=== PATIENT | female | born 1945 | race African-American/Black ===

== ENCOUNTER 2017-01-29 15:17 | Emergency (ER) | payer MEDICARE, OTHER ==
[~2017-01-29] VITALS: Ht 165.1 cm; Wt 46.8 kg
[~2017-01-29 15:17] MED LIST: ARTIDRO EACH EYE; BACL10TA PO; CARB25TA9 PO; CLON0.1T PO; FLUT1INH INH; IBUP1TAB5 PO; MIRA3350 PO; MONT10TA2 PO; ONDA4TAB7 SL; SERT-132 PO; TRAZ50TA12 PO; UMEC1INH INH
[2017-01-29 15:36] VITALS: BP 178/117; PULSE 80; RESP 16; TEMP 98.4; O2SAT 99
[2017-01-29 15:44] VITALS: BP 178/117; PULSE 80; RESP 16; TEMP 98.4; O2SAT 99
[2017-01-29] MEDS ORDERED: SODIUM CHLORIDE 0.9% FLUSH 10 ML FLUSH IVF PRN (15:45)
--- NOTE | 2017-01-29 16:16 | RADRPT ---
EXAM DATE/TIME: 01/29/2017 15:54 [facility] COMPARISON: No previous studies available for comparison. INDICATIONS : Shortness of breath. MEDICAL HISTORY : None. SURGICAL HISTORY : None. ENCOUNTER: Initial ACUITY: 1 day PAIN SCORE: 0/10 LOCATION: Bilateral chest FINDINGS: The heart is normal in size. There are chronic interstitial changes within the pulmonary parenchyma. The mediastinal contours are within normal limits. The visualized bony structures are grossly intact. CONCLUSION: 1. Chronic interstitial changes. No acute abnormality. Pito Dodd MD on January 29, 2017 at 16:14 Board Certified Radiologist. This report was verified electronically.
--- NOTE | 2017-01-29 16:17 | PD ---
HPI Chief Complaint: Hypertension Time Seen by Provider: 15:34 Travel History International Travel<30 days: No Contact w/Intl Traveler<30days: No Traveled to known affect area: No History of Present Illness HPI 71-year-old Afro-[place] female brought in from local nursing facility with history of progressive supranuclear palsy, with reports of labile hypertension as well as cough and occasional shortness of breath. Patient states she has no pain, but feels unwell. He denies fever or chills. She feels she occasionally chokes when she eats. Patient is able to speak and is alert and oriented but has supra nuclear palsy, causing her to have generalized spasticity and nuchal rigidity. He states no nausea, vomiting, or changes in bowel or bladder. Patient is allergic to Valium, codeine, and sulfa. Nursing facility states that they tried several duo nebs and her regular blood pressure medications do not seem to be improving her symptoms. She was transferred here for further evaluation and treatment at the request of the nursing facility's doctor. PFSH Past Medical History Cardiovascular Problems: Yes (HTN) COPD: Yes Diminished Hearing: No Hypertension: Yes Medical other: Yes (PROGRESSIVE SUPRANUCLEAR OPTHALMOPLEGIA ) Respiratory: Yes (COPD) Tetanus Vaccination: < 5 Years Influenza Vaccination: No Past Surgical History Section: Yes Ear Surgery: Yes (KELOID REMOVAL ) Eye Surgery: Yes (CATARACS) Gynecologic Surgery: Yes (HYSTERECTOMY ) Hysterectomy: Yes Social History Alcohol Use: No Tobacco Use: No Substance Use: No Allergies-Medications (Allergen,Severity, Reaction): Coded Allergies: codeine (Verified Allergy, Intermediate, Rash , throat closure, 01/29/17) Sulfa (Sulfonamide Antibiotics) (Verified Allergy, Unknown, 01/29/17) diazepam (Verified Adverse Reaction, Mild, 01/29/17) Reported Meds & Prescriptions Reported Meds & Active Scripts Active Ibuprofen 400 Mg Tab 400 Mg PO TID Clonidine (Clonidine HCl) 0.1 Mg Tab 0.1 Mg PO BID Reported Ondansetron Odt 4 Mg Tab 4 Mg SL Q8HR PRN Trazodone (Trazodone HCl) 50 Mg Tab 50 Mg PO HS Artificial Tears Opth Drops (Propylene Glycol-Glycerin Opth Drops) 1-0.3% Drops 1-2 Drop EACH EYE PRN PRN Miralax Powder (Polyethylene Glycol 3350 Powder) 17 Gm Powd 17 Gm PO DAILY Mix and dissolve one measuring cap-ful (17 grams) in water or juice. Breo Ellipta Inh (Fluticasone/Vilanterol) 100-25 Mcg/Act Inh 1 Puff INH DAILY Use daily at the same time. Incruse Ellipta Inh (Umeclidinium [place] Inh) 0.0625 Mg/Act Inh 62.5 Mcg INH DAILY Sertraline (Sertraline HCl) 50 Mg Tab 50 Mg PO DAILY Singulair (Montelukast Sodium) 10 Mg Tab 10 Mg PO DAILY Baclofen 10 Mg Tab 10 Mg PO BID Carbidopa-Levodopa 25-100 Mg Tab 1 Tab PO TID Review of Systems ROS Limitations: Clinical Condition Except as stated in HPI: all other systems reviewed are Neg General / Constitutional: No: Fever, Chills Eyes: No: Visual changes HENT: Positive: Neck Stiffness, No: Headaches, Sore Throat, Rhinitis, Rhinorrhea, Congestion, Nosebleed, Neck Pain, Dental Difficulties, Earache Cardiovascular: No: Chest Pain or Discomfort Respiratory: Positive: Cough, Shortness of Breath, No: Wheezing, Sneezing, Orthopnea, Hemoptysis, Stridor, Night Sweats, Pleuritic Pain Gastrointestinal: No: Nausea, Vomiting, Diarrhea, Abdominal Pain Genitourinary: No: Dysuria Musculoskeletal: No: Pain Skin: No Rash Neurologic: No: Weakness Psychiatric: No: Depression Endocrine: No: Polydipsia Hematologic/Lymphatic: No: Easy Bruising Physical Exam Narrative GENERAL: Patient is alert and oriented and states she is in no acute distress. SKIN: Warm and dry. Normal color. Normal turgor. HEAD: Atraumatic. Normocephalic. EYES: Pupils equal and round. No scleral icterus. No injection or drainage. ENT: No nasal bleeding or discharge. Mucous membranes pink and moist. Pharynx is clear, airway is patent. NECK: Trachea midline. Patient has chronic nuchal rigidity, consistent with her chronic condition. No acute findings noted CARDIOVASCULAR: Regular rate and rhythm. No murmurs gallops or rubs appreciated RESPIRATORY: No accessory muscle use. Question of rhonchi in the right lower lobe To auscultation. Breath sounds equal bilaterally. GASTROINTESTINAL: Abdomen soft, non-tender, nondistended. Hepatic and splenic margins not palpable. MUSCULOSKELETAL: Extremities without clubbing, cyanosis, or edema. No obvious deformities. NEUROLOGICAL: Awake and alert. No obvious cranial nerve deficits. Motor grossly within normal limits. Five out of 5 muscle strength in the arms and legs. Patient is noted to have generalized spasticity consistent with her critical condition. Normal speech. PSYCHIATRIC: Appropriate mood and affect; insight and judgment normal. Data Data Last Documented VS Vital Signs Date Time Temp Pulse Resp B/P (MAP) Pulse Ox O2 Delivery O2 Flow Rate FiO2 01/29/17 17:33 72 16 201/95 (130) 97 Nasal Cannula 2.00 01/29/17 15:44 98.4 Orders Orders Complete Blood Count With Diff (01/29/17 15:35) Comprehensive Metabolic Panel (01/29/17 15:35) B-Type Natriuretic Peptide (01/29/17 15:35) Act Partial Throm Time (Ptt) (01/29/17 15:35) Prothrombin Time / Inr (Pt) (01/29/17 15:35) Magnesium (Mg) (01/29/17 15:35) Ckmb (Isoenzyme) Profile (01/29/17 15:35) Troponin I (01/29/17 15:35) Urinalysis - C+S If Indicated (01/29/17 15:35) Iv Access Insert/Monitor (01/29/17 15:35) Electrocardiogram (01/29/17 15:35) Ecg Monitoring (01/29/17 15:35) Oximetry (01/29/17 15:35) Oxygen Administration (01/29/17 15:35) Chest, Single Ap (01/29/17 15:35) Sodium Chloride 0.9% Flush (Ns Flush) (01/29/17 15:45) CKMB (01/29/17 15:51) CKMB% (01/29/17 15:51) Cath For Specimen (01/29/17 17:15) Clonidine (Catapres) (01/29/17 18:30) Labs Laboratory Tests Test 01/29/17 15:51 01/29/17 17:15 White Blood Count 6.3 TH/MM3 Red Blood Count 3.94 MIL/MM3 Hemoglobin 12.0 GM/DL Hematocrit 35.9 % Mean Corpuscular Volume 91.3 FL Mean Corpuscular Hemoglobin 30.4 PG Mean Corpuscular Hemoglobin Concent 33.3 % Red Cell Distribution Width 14.5 % Platelet Count 240 TH/MM3 Mean Platelet Volume 7.5 FL Neutrophils (%) (Auto) 69.7 % Lymphocytes (%) (Auto) 19.3 % Monocytes (%) (Auto) 7.9 % Eosinophils (%) (Auto) 2.0 % Basophils (%) (Auto) 1.1 % Neutrophils # (Auto) 4.4 TH/MM3 Lymphocytes # (Auto) 1.2 TH/MM3 Monocytes # (Auto) 0.5 TH/MM3 Eosinophils # (Auto) 0.1 TH/MM3 Basophils # (Auto) 0.1 TH/MM3 CBC Comment DIFF FINAL Differential Comment Prothrombin Time 11.1 SEC Prothromb Time International Ratio 1.0 RATIO Activated Partial Thromboplast Time 27.0 SEC Blood Urea Nitrogen 11 MG/DL Creatinine 0.66 MG/DL Random Glucose 85 MG/DL Total Protein 8.2 GM/DL Albumin 3.7 GM/DL Calcium Level 8.8 MG/DL Magnesium Level 2.4 MG/DL Alkaline Phosphatase 82 U/L Aspartate Amino Transf (AST/SGOT) 21 U/L Alanine Aminotransferase (ALT/SGPT) 10 U/L Total Bilirubin 0.4 MG/DL Sodium Level 138 MEQ/L Potassium Level 4.1 MEQ/L Chloride Level 104 MEQ/L Carbon Dioxide Level 26.0 MEQ/L Anion Gap 8 MEQ/L Estimat Glomerular Filtration Rate 107 ML/MIN Total Creatine Kinase 166 U/L Creatine Kinase MB 2.3 NG/ML Troponin I LESS THAN 0.02 NG/ML B-Type Natriuretic Peptide 81 PG/ML Urine Color LIGHT-YELLOW Urine Turbidity CLEAR Urine pH 7.0 Urine Specific [place] 1.004 Urine Protein NEG mg/dL Urine Glucose (UA) NEG mg/dL Urine Ketones NEG mg/dL Urine Occult Blood NEG Urine Nitrite NEG Urine Bilirubin NEG Urine Urobilinogen LESS THAN 2.0 MG/DL Urine Leukocyte Esterase NEG Urine Squamous Epithelial Cells 0-5 /hpf Urine Amorphous Sediment FEW Microscopic Urinalysis Comment CULT NOT INDICATED MDM Medical Decision Making Medical Screen Exam Complete: Yes Emergency Medical Condition: Yes Medical Record Reviewed: Yes Differential Diagnosis Labile hypertension. Cough. Aspiration pneumonia. COPD exacerbation. Wheezing. Narrative Course Patient is medically stable at time of exam. EKG shows normal sinus rhythm without ST changes. Labs ordered including CBC, CMP, cardiac panel, and coagulation studies. Chest x-ray is ordered. Chest x-ray is read as negative for acute process per radiologist. EKG is unremarkable. Coagulation studies are normal. CMP is unremarkable. Troponin is normal. ProBNP is normal. Urinalysis shows no acute findings. Patient is given her clonidine 0.1 mg by mouth now. Patient is discussed with Dr. Hahn, and the patient is felt to be stable medically and safe for discharge back to her nursing facility. Patient should be followed up by her physician at the nursing facility, as no emergent findings were discovered. Diagnosis Primary Impression: Labile hypertension Referrals: Primary Care Physician Patient Instructions: General Instructions Additional Instructions: Patient is discussed with Dr. Hahn, and the patient is felt to be stable medically and safe for discharge back to her nursing facility. Patient should be followed up by her physician at the nursing facility, as no emergent findings were discovered. Med/Other Pt SpecificInfo: No Change to Meds Disposition: 01 DISCHARGE HOME Condition: Stable Wild Shankar Jan 29, 2017 16:17
[2017-01-29 16:21] LABS: AUTOMATED NEUTROPHIL # 4.4 TH/MM3 (1.8-7.7); BASOPHIL # 0.1 TH/MM3 (0-0.2); BASOPHIL % 1.1 % (0.0-2.0); EOSINOPHIL # 0.1 TH/MM3 (0-0.4); HEMATOCRIT 35.9 % (35.0-46.0); HEMO FLAGS DIFF FINAL; LYMPH % 19.3 % (9.0-44.0); LYMPHOCYTE # 1.2 TH/MM3 (1.0-4.8); MEAN CELL VOLUME 91.3 FL (80.0-100.0); MEAN CORPUSCULAR HEMOGLOBIN 30.4 PG (27.0-34.0); MEAN CORPUSCULAR HGB CONC 33.3 % (32.0-36.0); MONO % 7.9 % (0.0-8.0); NEUT % 69.7 % (16.0-70.0); PLATELET COUNT 240 TH/MM3 (150-450); RED BLOOD COUNT 3.94 MIL/MM3 (4.00-5.30); RED CELL DISTRIBUTION WIDTH 14.5 % (11.6-17.2); WHITE BLOOD COUNT 6.3 TH/MM3 (4.0-11.0)
[2017-01-29 16:31] LABS: PROTHROMBIN TIME - PATIENT 11.1 SEC (9.8-11.6)
[2017-01-29 16:51] LABS: ALKALINE PHOSPHATASE 82 U/L (45-117); ALT (GPT) 10 U/L (10-53); ANION GAP 8 MEQ/L (5-15); AST (GOT) 21 U/L (15-37); BLOOD UREA NITROGEN 11 MG/DL (7-18); CHLORIDE 104 MEQ/L (98-107); CREATINE KINASE 166 U/L (26-192); GLOMERULAR FILTRATION RATE 107 ML/MIN (>89); MAGNESIUM 2.4 MG/DL (1.5-2.5); SODIUM (NA) 138 MEQ/L (136-145); TOTAL BILIRUBIN ADULT 0.4 MG/DL (0.2-1.0)
[2017-01-29 16:56] LABS: POTASSIUM 4.1 MEQ/L (3.5-5.1)
[2017-01-29 17:09] LABS: CKMB 2.3 NG/ML (0.5-3.6)
[2017-01-29 17:33] VITALS: BP 201/95; PULSE 72; RESP 16; O2SAT 97
[2017-01-29 17:40] LABS: BLOOD, URINE NEG (NEG); GLUCOSE,URINE NEG (NEG); KETONE, URINE NEG (NEG); NITRITE,URINE NEG (NEG); URINE COLOR LIGHT-YELLOW (YELLW/STRAW)
[2017-01-29 17:48] LABS: SQUAMOUS EPITHELIAL CELL URINE 0-5 /hpf (0-5)
[2017-01-29 17:49] LABS: COMMENT (UR) CULT NOT INDICATED; CULTURE IF INDICATED CULT NOT INDICATED
[2017-01-29] MEDS ORDERED: cloNIDine HCL 0.1 MG TAB PO ONE ×2 (18:30→19:30)
[2017-01-29 18:49] VITALS: BP 178/89
--- NOTE | 2017-01-30 09:14 | EKG ---
Date Performed: 01/29/2017 Time Performed: 15:57:06 PTAGE: 71 years EKG: Sinus rhythm NONSPECIFIC ST & T-WAVE ABNORMALITY ABNORMAL ECG NO PREVIOUS TRACING DOCTOR: Tez Daly Interpretating Date/Time 01/30/2017 09:13:22
[2017-02-11] MEDS ORDERED: AMLO2.5T PO (09:50)
== END 2017-01-29 20:16 | disposition home or self-care (01) ==
LOC: NEPE 15:17
DX: I10 Essential (primary) hypertension (principal); G23.1 Progressive supranuclear ophthalmoplegia [Steele-Richardson-Olszewski]; R94.31 Abnormal electrocardiogram [ECG] [EKG]
CPT/HCPCS: 71010; 80053; 81001; 82550; 82552; 83735; 83880; 84484; 85025; 85610; 85730; 93005; 99285; P9612

== ENCOUNTER → 2017-04-30 | Outpatient (CLI) | payer MEDICARE, OTHER ==
[~2017-04-30] MED LIST changes: +AMLO2.5T PO; +TRAZ100T10 PO; -TRAZ50TA12 PO
--- NOTE | 2017-04-30 10:55 | RADRPT ---
EXAM DATE/TIME: 04/30/2017 10:04 [facility] COMPARISON: No previous studies available for comparison. INDICATIONS : Dysphagia. FLUORO TIME: 2.1 minutes IMAGE COUNT: 1 CONTRAST: Dose as prescribed by speech pathologist. MEDICAL HISTORY : Progressive Supranuclear Opthalmoplegia. SURGICAL HISTORY : None. ENCOUNTER: Initial ACUITY: >1 year PAIN SCORE: 0/10 LOCATION: Esophagus. FINDINGS: A modified barium swallow was performed with speech pathology. Patient was given a variety of liquids to swallow. There is laryngeal penetration with delayed side aspiration. For a full detailed report, see report by the speech pathologist. CONCLUSION: Aspiration as above Marek Dodd MD FACR on April 30, 2017 at 10:53 Board Certified Radiologist. This report was verified electronically.
== END ==
LOC: HRAD 09:24
PROVIDERS: ATTEND Family Medicine
DX: R13.12 Dysphagia, oropharyngeal phase (principal)
CPT/HCPCS: 74230; 92611; G8996; G8997; G8998